=== PATIENT | male | born 1990 | race Two or more races ===

== ENCOUNTER 2024-01-19 15:59 | Emergency (ER) | payer SELFPAY ==
[~2024-01-19] VITALS: Ht 182.9 cm; Wt 87.0 kg
[2024-01-19 16:01] VITALS: BP 150/81; PULSE 70; RESP 18; O2SAT 100
== END 2024-01-19 16:00 | disposition left against medical advice (07) ==
LOC: ER 15:59
DX: T65.91XA Toxic effect of unspecified substance, accidental (unintentional), initial encounter (principal); Z53.21 Procedure and treatment not carried out due to patient leaving prior to being seen by health care provider; X58.XXXA Exposure to other specified factors, initial encounter; Y93.89 Activity, other specified; Y92.89 Other specified places as the place of occurrence of the external cause; Y99.8 Other external cause status